=== PATIENT | male | born 1990 | race Caucasian/White ===

== ENCOUNTER 2020-05-24 14:19 | Emergency (ER) | payer OTHER ==
[~2020-05-24] VITALS: Ht 162.6 cm; Wt 55.3 kg
[2020-05-24] MEDS ORDERED: REGULOID (16:13)
[2020-05-24] MEDS ORDERED: IBUP400 PO ×2 (16:14→16:15)
[2020-05-24] MEDS ORDERED: Hair, Skin & N1 EACH PO (16:14)
[2020-05-24] MEDS ORDERED: OMEP20ER PO (16:15)
[2020-05-24] MEDS ORDERED: Buspirone HCl7.5 MG PO (16:15)
[2020-05-24] MEDS ORDERED: MIRALAX17 GM PO (16:15)
[2020-05-24] MEDS ORDERED: CLON.1 PO (16:16)
[2020-05-24] MEDS ORDERED: RISP1 PO (16:17)
[2020-05-24] MEDS ORDERED: MELATONIN5 M1 PO (16:18)
[2020-05-24] MEDS ORDERED: CLONIDINE HCL0.1 MG PO (16:18)
[2020-05-24] MEDS ORDERED: HYDCOR2.5C (16:19)
[2020-05-24] MEDS ORDERED: [UNRECOGNIZED DRUG - OTHER] (16:19)
[2020-05-24] MEDS ORDERED: QUET25 PO (18:33)
[2020-05-24] MEDS ORDERED: RISPERDAL PO (18:35)
== END 2020-05-24 19:44 | disposition home or self-care (01) ==
LOC: ER 14:19
DX: R45.1 Restlessness and agitation (principal); S40.022A Contusion of left upper arm, initial encounter; S40.021A Contusion of right upper arm, initial encounter; F31.9 Bipolar disorder, unspecified; Z79.899 Other long term (current) drug therapy; X58.XXXA Exposure to other specified factors, initial encounter
CPT/HCPCS: 99285; Q3014